=== PATIENT | female | born 1950 | race Caucasian/White ===

== ENCOUNTER → 2016-10-13 | Outpatient (CLI) | payer OTHER | LOC: RAD 07:00 | DX: M25.462 Effusion, left knee (principal); M71.22 Synovial cyst of popliteal space [Baker], left knee; M94.262 Chondromalacia, left knee; M23.322 Other meniscus derangements, posterior horn of medial meniscus, left knee ==

== ENCOUNTER → 2016-10-29 | Outpatient (CLI) | payer OTHER | LOC: MAMMO 08:32 | DX: Z12.31 Encounter for screening mammogram for malignant neoplasm of breast (principal) | CPT/HCPCS: G0202 ==

== ENCOUNTER 2016-12-06 13:59 | Outpatient (RCR) | payer OTHER | END 2016-12-06 14:30 | disposition still patient (30) | LOC: PT 13:59 | DX: Z47.89 Encounter for other orthopedic aftercare (principal) ==

== ENCOUNTER → 2017-01-04 | Day surgery (SDC) | payer OTHER | LOC: MSO 07:18 | DX: Z12.11 Encounter for screening for malignant neoplasm of colon (principal); Z88.0 Allergy status to penicillin; Z88.2 Allergy status to sulfonamides; Z88.7 Allergy status to serum and vaccine; Z86.11 Personal history of tuberculosis; K75.89 Other specified inflammatory liver diseases; K57.30 Diverticulosis of large intestine without perforation or abscess without bleeding | CPT/HCPCS: 00810; J3010; J7120 ==

== ENCOUNTER → 2017-01-26 | Outpatient (CLI) | payer OTHER ==
[2017-01-26 06:42] LABS: EOS # 0.2 (0.04-0.40); EOS % 5.2 % (1.0-5.0); HEMATOCRIT 43.2 % (37.0-47.0); HEMOGLOBIN 14.5 g/dL (12.5-16.0); LYMPH# 1.9 (1.50-4.00); MEAN CELL VOLUME 94 fl (78-100); MEAN CORPUSCULAR HEMOGLOBIN 32 pg (27-31); MEAN CORPUSCULAR HGB CONC 34 g/dL (33-37); MEAN PLATELET VOLUME 10.3 fl (7.4-10.4); MONO # 0.4 (0.20-0.80); NEU # 1.3 (1.40-6.50); PLATELET COUNT 218 K/mm3 (130-400); RED CELL DISTRIBUTION WIDTH 12.7 % (11.5-14.5); WHITE BLOOD COUNT 3.9 K/mm3 (4.8-10.8)
[2017-01-26 07:05] LABS: ALBUMIN 4.1 g/dL (3.5-5.0); BUN/CREATININE RATIO 13.2 (6.0-26.0); CALCIUM 9.7 mg/dL (8.4-10.2); POTASSIUM 4.1 mmol/L (3.6-5.0); TOTAL BILIRUBIN 1.1 mg/dL (0.2-1.3); TOTAL PROTEIN 6.8 g/dL (6.3-8.2)
== END ==
LOC: LAB 06:19
PROVIDERS: Family Medicine
DX: Z00.00 Encounter for general adult medical examination without abnormal findings (principal); Z88.5 Allergy status to narcotic agent; Z88.0 Allergy status to penicillin; Z88.2 Allergy status to sulfonamides; Z88.7 Allergy status to serum and vaccine

== ENCOUNTER → 2017-10-12 | Outpatient (CLI) | payer MEDICARE, BC | LOC: RAD 09:16 | DX: M19.012 Primary osteoarthritis, left shoulder (principal) ==

== ENCOUNTER → 2018-01-02 | Outpatient (CLI) | payer MEDICARE, BC ==
[2018-01-02 13:34] LABS: ALBUMIN 4.2 g/dL (3.5-5.0); CALCIUM 9.5 mg/dL (8.4-10.2); POTASSIUM 3.9 mmol/L (3.6-5.0); TOTAL BILIRUBIN 0.8 mg/dL (0.2-1.3)
[2018-01-02 14:21] LABS: HEMATOCRIT 42.6 % (37.0-47.0); HEMOGLOBIN 14.3 g/dL (12.5-16.0); MEAN CELL VOLUME 95 fl (78-100); MEAN CORPUSCULAR HEMOGLOBIN 32 pg (27-31); MEAN CORPUSCULAR HGB CONC 34 g/dL (33-37); MEAN PLATELET VOLUME 11.3 fl (7.4-10.4); PLATELET COUNT 222 K/mm3 (130-400); RED BLOOD COUNT 4.48 M/mm3 (4.10-5.30); RED CELL DISTRIBUTION WIDTH 12.9 % (11.5-14.5); WHITE BLOOD COUNT 4.2 K/mm3 (4.8-10.8)
[2018-01-02 14:43] LABS: BAND 1 % (0-10); LYMPHOCYTE 38 % (20-51); MONOCYTE 14 % (3-10); NEUTROPHILS 42 % (42-75)
== END ==
LOC: LAB 07:49
PROVIDERS: Physician Assistant
DX: Z00.00 Encounter for general adult medical examination without abnormal findings (principal); E03.9 Hypothyroidism, unspecified

== ENCOUNTER → 2018-01-03 | Outpatient (CLI) | payer MEDICARE, BC | LOC: MAMMO 10:45 | DX: Z12.31 Encounter for screening mammogram for malignant neoplasm of breast (principal) ==

== ENCOUNTER → 2018-01-03 | Outpatient (CLI) | payer MEDICARE, BC | LOC: MAMMO 10:48 | DX: Z13.820 Encounter for screening for osteoporosis (principal); M85.852 Other specified disorders of bone density and structure, left thigh ==

== ENCOUNTER → 2018-02-04 | Outpatient (CLI) | payer MEDICARE, BC ==
[2018-02-04 16:51] LABS: EOS # 0.2 (0.04-0.40); EOS % 3.7 % (1.0-5.0); HEMATOCRIT 41.8 % (37.0-47.0); HEMOGLOBIN 14.2 g/dL (12.5-16.0); LYMPH# 2.1 (1.50-4.00); MEAN CELL VOLUME 95 fl (78-100); MEAN CORPUSCULAR HEMOGLOBIN 32 pg (27-31); MEAN CORPUSCULAR HGB CONC 34 g/dL (33-37); MEAN PLATELET VOLUME 10.6 fl (7.4-10.4); MONO # 0.6 (0.20-0.80); NEU # 1.9 (1.40-6.50); PLATELET COUNT 200 K/mm3 (130-400); RED BLOOD COUNT 4.41 M/mm3 (4.10-5.30); RED CELL DISTRIBUTION WIDTH 12.7 % (11.5-14.5); WHITE BLOOD COUNT 4.8 K/mm3 (4.8-10.8)
== END ==
LOC: LAB 16:33
PROVIDERS: Physician Assistant
DX: R79.89 Other specified abnormal findings of blood chemistry (principal)

== ENCOUNTER → 2019-01-03 | Outpatient (CLI) | payer MEDICARE, BC ==
[2019-01-03 06:33] LABS: EOS # 0.3 (0.04-0.40); EOS % 7.6 % (1.0-5.0); HEMATOCRIT 42.7 % (37.0-47.0); HEMOGLOBIN 14.1 g/dL (12.5-16.0); LYMPH# 1.8 (1.50-4.00); MEAN CELL VOLUME 94 fl (78-100); MEAN CORPUSCULAR HEMOGLOBIN 31 pg (27-31); MEAN CORPUSCULAR HGB CONC 33 g/dL (33-37); MEAN PLATELET VOLUME 10.2 fl (7.4-10.4); MONO # 0.5 (0.20-0.80); NEU # 1.4 (1.40-6.50); PLATELET COUNT 225 K/mm3 (130-400); RED BLOOD COUNT 4.56 M/mm3 (4.10-5.30); RED CELL DISTRIBUTION WIDTH 12.7 % (11.5-14.5); WHITE BLOOD COUNT 4.1 K/mm3 (4.8-10.8)
[2019-01-03 06:50] LABS: CALCIUM 9.4 mg/dL (8.3-10.5)
[2019-01-03 06:51] LABS: TOTAL PROTEIN 6.8 g/dL (6.2-8.1)
[2019-01-03 06:53] LABS: TOTAL BILIRUBIN 0.8 mg/dL (0.2-1.2)
== END ==
LOC: LAB 06:19
PROVIDERS: Physician Assistant
DX: Z13.29 Encounter for screening for other suspected endocrine disorder (principal); E78.5 Hyperlipidemia, unspecified; M85.80 Other specified disorders of bone density and structure, unspecified site; R79.89 Other specified abnormal findings of blood chemistry

== ENCOUNTER → 2019-01-10 | Outpatient (CLI) | payer MEDICARE, BC | LOC: MAMMO 15:10 | DX: Z12.31 Encounter for screening mammogram for malignant neoplasm of breast (principal) ==

== ENCOUNTER → 2019-08-14 | Outpatient (CLI) | payer MEDICARE, BC | LOC: LAB 09:01 | DX: N39.0 Urinary tract infection, site not specified (principal) ==

== ENCOUNTER → 2019-09-03 | Outpatient (CLI) | payer MEDICARE, BC | LOC: LAB 10:55 | DX: M79.10 Myalgia, unspecified site (principal); R51 Headache; Z20.828 Contact with and (suspected) exposure to other viral communicable diseases ==

== ENCOUNTER → 2019-11-30 | Outpatient (CLI) | payer MEDICARE, BC | LOC: RAD 14:48 | DX: S63.283A Dislocation of proximal interphalangeal joint of left middle finger, initial encounter (principal); S63.285A Dislocation of proximal interphalangeal joint of left ring finger, initial encounter ==

== ENCOUNTER → 2019-12-28 | Outpatient (CLI) | payer MEDICARE, BC ==
[2019-12-28 09:28] LABS: EOS # 0.1 (0.04-0.40); EOS % 3.3 % (1.0-5.0); HEMATOCRIT 42.6 % (37.0-47.0); MEAN CELL VOLUME 94 fl (78-100); MEAN CORPUSCULAR HEMOGLOBIN 31 pg (27-31); MEAN CORPUSCULAR HGB CONC 33 g/dL (33-37); MEAN PLATELET VOLUME 10.6 fl (7.4-10.4); MONO # 0.5 (0.20-0.80); NEU # 1.3 (1.40-6.50); PLATELET COUNT 182 K/mm3 (130-400); RED BLOOD COUNT 4.55 M/mm3 (4.10-5.30); RED CELL DISTRIBUTION WIDTH 12.6 % (11.5-14.5); WHITE BLOOD COUNT 3.9 K/mm3 (4.8-10.8)
[2019-12-28 09:33] LABS: ALBUMIN 3.9 g/dL (3.4-4.8); POTASSIUM 3.8 mmol/L (3.5-5.1)
[2019-12-28 09:34] LABS: CALCIUM 9.1 mg/dL (8.3-10.5)
[2019-12-28 09:35] LABS: TOTAL PROTEIN 6.6 g/dL (6.2-8.1)
[2019-12-28 09:37] LABS: TOTAL BILIRUBIN 0.7 mg/dL (0.2-1.2)
== END ==
LOC: LAB 08:39
PROVIDERS: Physician Assistant
DX: Z00.00 Encounter for general adult medical examination without abnormal findings (principal); Z13.29 Encounter for screening for other suspected endocrine disorder; E78.5 Hyperlipidemia, unspecified; R73.9 Hyperglycemia, unspecified

== ENCOUNTER → 2020-01-15 | Outpatient (CLI) | payer MEDICARE, BC | LOC: MAMMO 11:28 | DX: Z12.31 Encounter for screening mammogram for malignant neoplasm of breast (principal) ==

== ENCOUNTER → 2020-12-31 | Outpatient (CLI) | payer MEDICARE, BC ==
[2020-12-31 07:47] LABS: BASO # 0.03 K/mm3 (0.02-0.10); EOS # 0.17 K/mm3 (0.04-0.40); EOS % 3.7 % (1.0-5.0); HEMATOCRIT 43.3 % (37.0-47.0); HEMOGLOBIN 14.3 g/dL (12.5-16.0); LYMPH# 2.13 K/mm3 (1.50-4.00); MEAN CELL VOLUME 96 fl (78-100); MEAN CORPUSCULAR HEMOGLOBIN 32 pg (27-31); MEAN CORPUSCULAR HGB CONC 33 g/dL (33-37); MEAN PLATELET VOLUME 10.2 fl (7.4-10.4); MONO # 0.48 K/mm3 (0.20-0.80); NEU # 1.81 K/mm3 (1.40-6.50); PLATELET COUNT 212 K/mm3 (130-400); RED BLOOD COUNT 4.52 M/mm3 (4.10-5.30); RED CELL DISTRIBUTION WIDTH 12.4 % (11.5-14.5); WHITE BLOOD COUNT 4.6 K/mm3 (4.8-10.8)
[2020-12-31 07:59] LABS: ALBUMIN 4.2 g/dL (3.4-4.8)
[2020-12-31 08:00] LABS: CALCIUM 9.6 mg/dL (8.3-10.5)
[2020-12-31 08:01] LABS: TOTAL PROTEIN 6.8 g/dL (6.2-8.1)
[2020-12-31 08:03] LABS: TOTAL BILIRUBIN 1.1 mg/dL (0.2-1.2)
== END ==
LOC: LAB 07:21
PROVIDERS: Physician Assistant
DX: Z00.00 Encounter for general adult medical examination without abnormal findings (principal); Z13.220 Encounter for screening for lipoid disorders; Z13.29 Encounter for screening for other suspected endocrine disorder; Z13.1 Encounter for screening for diabetes mellitus

== ENCOUNTER → 2021-01-27 | Outpatient (CLI) | payer MEDICARE, BC | LOC: LAB 09:52 | DX: Z20.822 Contact with and (suspected) exposure to COVID-19 (principal) ==

== ENCOUNTER → 2021-02-04 | Outpatient (CLI) | payer MEDICARE, BC | LOC: RAD 10:58 | DX: M16.0 Bilateral primary osteoarthritis of hip (principal) ==

== ENCOUNTER → 2021-02-04 | Outpatient (CLI) | payer MEDICARE, BC | LOC: MAMMO 10:29 | DX: Z12.31 Encounter for screening mammogram for malignant neoplasm of breast (principal); M25.551 Pain in right hip; M25.552 Pain in left hip ==

== ENCOUNTER → 2021-05-28 | Outpatient (CLI) | payer MEDICARE, BC ==
[2021-05-28 08:48] LABS: BASO # 0.02 K/mm3 (0.02-0.10); EOS # 0.09 K/mm3 (0.04-0.40); EOS % 2.6 % (1.0-5.0); HEMOGLOBIN 13.8 g/dL (12.5-16.0); LYMPH# 1.65 K/mm3 (1.50-4.00); MEAN CELL VOLUME 96 fl (78-100); MEAN CORPUSCULAR HEMOGLOBIN 31 pg (27-31); MEAN CORPUSCULAR HGB CONC 33 g/dL (33-37); MEAN PLATELET VOLUME 10.4 fl (7.4-10.4); MONO # 0.44 K/mm3 (0.20-0.80); NEU # 1.29 K/mm3 (1.40-6.50); PLATELET COUNT 199 K/mm3 (130-400); RED BLOOD COUNT 4.39 M/mm3 (4.10-5.30); RED CELL DISTRIBUTION WIDTH 12.5 % (11.5-14.5); WHITE BLOOD COUNT 3.5 K/mm3 (4.8-10.8)
[2021-05-28 08:51] LABS: ALBUMIN 4.3 g/dL (3.4-4.8); POTASSIUM 4.4 mmol/L (3.5-5.1); SODIUM 142 mmol/L (136-145)
[2021-05-28 08:53] LABS: CALCIUM 9.7 mg/dL (8.3-10.5)
[2021-05-28 08:54] LABS: GLUCOSE 101 mg/dL (65-105); TOTAL PROTEIN 7.2 g/dL (6.2-8.1)
[2021-05-28 08:55] LABS: CARBON DIOXIDE 25 mmol/L (23-31)
[2021-05-28 08:56] LABS: TOTAL BILIRUBIN 0.8 mg/dL (0.2-1.2)
[2021-05-28 08:59] LABS: AST-SGOT 24 U/L (5-34)
[2021-05-28 09:00] LABS: ALT/SGPT 23 U/L (0-55)
[2021-05-28 10:06] LABS: ERYTHROCYTE SEDIMENTATION RATE 2 mm/hr (0-30)
== END ==
LOC: LAB 08:22
PROVIDERS: Physician Assistant
DX: M31.6 Other giant cell arteritis (principal); H57.12 Ocular pain, left eye; R42 Dizziness and giddiness; H92.02 Otalgia, left ear; K90.9 Intestinal malabsorption, unspecified; E55.9 Vitamin D deficiency, unspecified

== ENCOUNTER → 2021-06-08 | Outpatient (CLI) | payer MEDICARE, BC | LOC: RAD 11:35 | DX: J34.9 Unspecified disorder of nose and nasal sinuses (principal); R90.82 White matter disease, unspecified | CPT/HCPCS: A9585 ==

== ENCOUNTER → 2021-07-02 | Outpatient (CLI) | payer MEDICARE, BC | LOC: RAD 13:04 | DX: J01.90 Acute sinusitis, unspecified (principal) ==

== ENCOUNTER → 2021-10-14 | Outpatient (CLI) | payer MEDICARE, BC | LOC: RAD 09:37 | DX: M46.1 Sacroiliitis, not elsewhere classified (principal); M25.851 Other specified joint disorders, right hip; M25.852 Other specified joint disorders, left hip ==

== ENCOUNTER → 2021-12-17 | Outpatient (CLI) | payer MEDICARE, BC | LOC: RAD 12:19 | DX: M76.892 Other specified enthesopathies of left lower limb, excluding foot (principal) ==

== ENCOUNTER → 2021-12-27 | Outpatient (CLI) | payer MEDICARE, BC | LOC: LAB 08:48 | DX: Z00.00 Encounter for general adult medical examination without abnormal findings (principal); Z12.39 Encounter for other screening for malignant neoplasm of breast; Z13.820 Encounter for screening for osteoporosis; M77.9 Enthesopathy, unspecified; M85.80 Other specified disorders of bone density and structure, unspecified site; E55.9 Vitamin D deficiency, unspecified; R79.89 Other specified abnormal findings of blood chemistry ==

== ENCOUNTER → 2023-06-06 | Outpatient (CLI) | payer MEDICARE, BC | LOC: MAMMO 11:00 | DX: Z12.31 Encounter for screening mammogram for malignant neoplasm of breast (principal) ==

== ENCOUNTER → 2023-11-11 | Outpatient (CLI) | payer MEDICARE, BC ==
[2023-11-11 07:59] LABS: ALBUMIN 4.3 g/dL (3.4-4.8)
[2023-11-11 08:00] LABS: CALCIUM 9.6 mg/dL (8.3-10.5)
[2023-11-11 08:01] LABS: TOTAL PROTEIN 6.9 g/dL (6.2-8.1)
[2023-11-11 08:03] LABS: TOTAL BILIRUBIN 0.9 mg/dL (0.2-1.2)
== END ==
LOC: LAB 07:37
PROVIDERS: Physician Assistant
DX: R30.0 Dysuria (principal); E78.5 Hyperlipidemia, unspecified